=== PATIENT | male | born 1990 | race Asian ===

== ENCOUNTER 2018-09-22 21:27 | Emergency (ER) | payer OTHER ==
[~2018-09-22] VITALS: Ht 172.7 cm; Wt 103.0 kg
[2018-09-23] MEDS ORDERED: DIPHENHYDRAMINE 25MG CAPSULE PO ONE (00:15)
[2018-09-23] MEDS ORDERED: PREDNISONE 20MG TABLET PO ONE (00:15)
[2018-09-23] MEDS ORDERED: FAMOTIDINE 20MG TABLET PO ONE (00:15)
[2018-09-23 00:34] VITALS: BP 129/75
== END 2018-09-23 00:35 | disposition home or self-care (01) ==
LOC: ER 21:27
DX: T78.49XA Other allergy, initial encounter (principal); X58.XXXA Exposure to other specified factors, initial encounter; F17.200 Nicotine dependence, unspecified, uncomplicated
CPT/HCPCS: 99284; J7512; Q0163